=== PATIENT | female | born 1960 | race Caucasian/White ===

== ENCOUNTER 2020-12-06 13:53 | Emergency (ER) | payer OTHER ==
[~2020-12-06 13:53] MED LIST: ALBUTEROL0.63 MG/3 INH; AMLODIPINE BESYL5 MG PO; EFFEXOR 37.537.5 MG PO; FLONASE 0.05% N16 GM; FLUTICASONE-SA1 EAC3 INH; HYDROCHLOROTHIA25 MG PO; LISINOPRIL40 MG PO; METOPROLOL TART50 MG PO; MUCINEX600 MG PO; NAPROXEN500 MG PO; NORCO 10-325 T1 EACH PO; ROXICODONE5 MG PO; VISTARIL25 MG PO; XARELTO2.5 MG PO
[2020-12-06 16:31] LABS: HEMOGLOBIN 17.2 gm/dl (12.3-15.3); RED BLOOD COUNT 5.27 M/UL (4.00-5.10); WHITE BLOOD COUNT 13.8 K/UL (4.5-11.0)
== END 2020-12-06 18:55 | disposition home or self-care (01) ==
LOC: ER1 13:53
PROVIDERS: Nurse Practitioner
DX: R10.9 Unspecified abdominal pain (principal); I10 Essential (primary) hypertension; J45.909 Unspecified asthma, uncomplicated; F17.210 Nicotine dependence, cigarettes, uncomplicated
CPT/HCPCS: 72072; 72100; 80053; 80307; 81001; 83605; 83690; 85025; 96374; 96375; 99284; J1885; J2405